=== PATIENT | male | born 1970 | race Caucasian/White ===

== ENCOUNTER 2024-02-01 20:13 | Emergency (ER) | payer OTHER, SELFPAY ==
[2024-02-01 20:15] VITALS: BP 185/121
--- NOTE | 2024-02-01 21:30 | ED.GENMED ---
History of Present Illness
General
Chief Complaint: Flank Pain
Time Seen by Provider: 02/01/24 21:00
Travel History
Have you had any contact with someone who has COVID-19?: No
Do you have any symptoms of coronavirus? Fever > 100 degrees, chills, cough, shortness of breath, sore throat, loss of taste or smell, muscle aches, or headache?: No
History of Present Illness
History of Present Illness:
53-year-old male with history of hypertension and hyperlipidemia presents to the emergency department for evaluation of left flank pain ongoing for the past week. Pain is colicky in nature, radiates from left flank to the groin. He did have an
outpatient x-ray obtained 2 days ago that was suspicious for distal ureteral calculus but not confirmatory. Does have a history of kidney stones that he is typically passed without difficulty. Denies any fevers or chills. No nausea or vomiting.
Took ibuprofen without relief
Past History
Past History
ED Past Medical History: HTN, Hypercholesterolemia and Other (sleep apnea , kidney stones)
ED Past Surgical History: None
Social History
Tobacco: Former smoker
Alcohol: Occasional
Drug: None
Personal:
Living: with family
Employment: Employed
Family History
Family History: Other (Noncontributory)
Review of Systems
Review of Systems
Allergies reviewed?: Yes
All Other Systems: ROS reviewed and negative except as documented in HPI and ROS
Phy Exam
Physical Exam
Physical Exam:
GEN: Well appearing, NAD, WDWN
HEENT: Oral mucosa moist, no scleral icterus
Cardiac: Regular rate
Lung: No respiratory distress, no tachypnea
MSK: No gross deformity or injuries
Skin: Good color, no pallor or jaundice, no rashes
Neuro: AO x3, moves all extremities freely
Psych: Calm, cooperative
Course
Orders/Labs/Results
Orders:
Orders
02/01/24 21:31
CT Abd/pel Without Iv Or Oral Urgent
Comment:
Reason For Exam: L flank pain
0.9% Sodium Chloride 1000 ml [Nss] 1,000 ml IV BOLUS
Ketorolac [Toradol] 15 mg IV NOW STA
02/01/24 21:37
Urinalysis Reflex To Culture Urgent
Date Specimen was Collected: 02/01/24
Time Specimen was Collected: 21:36
Urine Microscopic Reflex Cult Urgent
02/01/24 21:42
Basic Metabolic Panel Urgent
Complete Blood Count/With Diff Urgent
02/01/24 23:25
Ketorolac [Toradol] 15 mg IV NOW STA
Oxycodone/Acetaminophen [Percocet 5/325] 1 tablet PO NOW STA
Abnormal Lab Results
02/01/24 02/01/24
21:37 21:42
MCV 79.5 L fL
(80.0-94.0)
MPV 10.9 H fL
(7.4-10.4)
Absolute Monos (auto) 0.9 H 10^3/uL
(0.1-0.6)
Monocytes % 9.9 H %
(1.7-9.3)
BUN 23 H mg/dl
(9-20)
Glucose 183 H mg/dl
(70-99)
Urine Ketones Trace A
(Negative)
Urine Bacteria (Reflex) Few A
(Negative)
Urine Glucose 1+ A
(Negative)
Urine Albumin (Reflex) 3+ A
(Neg - Trace)
02/01/24 21:42
02/01/24 21:42
Vital Signs
Initial and Last Documented VS:
Initial Vital Signs
Temp Pulse BP Pulse Ox
97.3 F 98 185/121 97
02/01/24 20:15 02/01/24 20:15 02/01/24 20:15 02/01/24 20:15
Last Documented Vital Signs
Temp Pulse Resp BP Pulse Ox
97.3 F 79 14 168/74 99
02/01/24 20:15 02/01/24 23:43 02/01/24 23:43 02/01/24 23:43 02/01/24 22:14
MDM/Problems Addressed
MDM/Problems Addressed:
52-year-old male presents with left flank pain. He was found to have a kidney stone as an outpatient. He has no urinary tract voiding symptoms or fevers at this time. Outpatient medications have not improved symptoms. CT shows an 8 mm left
distal ureteral stone with mild hydronephrosis. Patient's urinalysis is bland, he has no fever or leukocytosis. CT report is suspicious for mural thickening of the bladder however the urinalysis is not consistent with UTI. Patient's pain improved
dramatically with treatment in the emergency department thus he is suitable for discharge home. I did discuss the findings and the clinical course with urology on-call to help facilitate close outpatient follow-up. ED return parameters discussed
with the patient
*Critical Care Note
Total Time (30-74mins, 75-104mins- exclusive of procedures): Not Applicable
ED Attending Note
-
Portions of this chart may have been created with voice recognition software.� Occasional wrong word or��sound alike� substitutions may have occurred due to the inherent limitations of voice recognition software.
Discharge Plan
Departure
Patient Disposition: Home (Routine Discharge)
Date of Disposition: 02/01/24
Time of Disposition: 23:25
Patient with high blood pressure during this ER visit?: No
Discharge Problem:
Ureterolithiasis
Instructions: Kidney Stones (DC)
Prescriptions:
New
oxycodone-acetaminophen [Percocet] 5-325 mg tablet
1 tab PO Q6HPRN PRN (Reason: pain) Qty: 8 0RF
ketorolac 10 mg tablet
10 mg PO Q8H Qty: 10 0RF
Rx Instructions:
maximum total duration of 5 days from all oral, intranasal, or parenteral formulations
No Action
atorvastatin 20 MG tablet
20 mg PO DAILY
diltiazem HCl 180 MG capsule,extended release 24hr
180 mg PO DAILY
tamsulosin [Flomax] 0.4 MG capsule
0.4 mg PO DAILY Qty: 7 1RF
valsartan 320 mg Tablet
320 mg PO DAILY
fenofibrate
145 mg PO DAILY
Fish Oil
1 cap PO Q48H
Referrals:
Deondre Sampson MD [Active] - Call in 1-3 days for appt
Demarcus Hodges MD [Family Provider] -
Activity Restrictions/Additional Instructions:
Continue to take tamsulosin prescribed by your urologist
If you develop a fever or uncontrolled pain despite these medications return the emergency department immediately
Do not take ibuprofen, aspirin, or naproxen while taking the ketorolac
Interventions
Interventions:
*Risk Screen - Suicide Last Done: 02/01/24 21:53
*General Assessment Last Done: 02/01/24 20:18
*Neglect/Abuse Screening Last Done: 02/01/24 20:18
ED- Fall Risk Assessment Last Done: 02/01/24 21:53
*ED COVID-19 Vaccine History Last Done: 02/01/24 20:18
*Nursing Disposition Last Done: 02/01/24 23:54
PQ-Byqozz-Rwbcwiztet Assessment Last Done: 02/01/24 21:53
ED-Male Genitourinary Assessment Last Done: 02/01/24 21:53
Discharge Date and Time
Discharge Date/Time: 02/01/24 23:54
[2024-02-01] MEDS: NSS 1000 IV (21:43)
[2024-02-01] MEDS: TORADOL 15 MG IV ×2 (21:43→23:45)
[2024-02-01 21:53] LABS: Urine Albumin 3+ (Neg - Trace); Urine Bilirubin Negative (Negative); Urine Character Clear (Clear); Urine Color Yellow; Urine Glucose 1+ (Negative); Urine Ketone Trace (Negative); Urine Leukocyte Negative (Negative); Urine Nitrite Negative (Negative); Urine Occult Blood Negative (Negative); Urine Specific Gravity 1.025 (<1.030); Urine Urobilinogen Negative (Neg - 1+)
[2024-02-01 21:53] LABS: % Basophils 1.1 % (0-2); % Immature Granulocytes 0.3 % (0-0.5); % Lymphocytes 23.5 % (20.5-51.1); % Monocytes 9.9 % (1.7-9.3); % Neutrophils 60.2 % (42.2-75.2); Absolute Basophils 0.1 10^3/uL (0-0.2); Absolute Eosinophils 0.5 10^3/uL (0-0.7); Absolute Lymphocytes 2.1 10^3/uL (1.2-3.4); Absolute Monocytes 0.9 10^3/uL (0.1-0.6); Absolute Neutrophils 5.4 10^3/uL (1.4-6.5); Hematocrit 43.7 % (39.0-52.0); Hemoglobin 15.3 g/dL (13.0-18.0); Mean Corpuscular Hgb 27.8 pg (27.0-31.0); Mean Corpuscular Volume 79.5 fL (80.0-94.0); Mean Platelet Volume 10.9 fL (7.4-10.4); Nucleated Red Blood Cells % 0 % (-); Platelet Count 260 10^3/uL (130-400); Red Cell Dist. Width 13.5 % (11.5-14.5)
--- NOTE | 2024-02-01 22:00 | EDRN ---
Pt developed dull pain in L flank 1 week ago. Pt has hx kidney stones and usually passes them on his own. Pt says pain has gotten worse and radiates into his groin. Pt took 800mg motrin which did not help his pain. Pt denies cp, sob, abd pain,
n/v/d/constipation, urinary symptoms, fever/cough/chills.
[2024-02-01 22:06] LABS: Blood Urea Nitrogen 23 mg/dl (9-20); Calcium 9.8 mg/dl (8.4-10.2); Carbon Dioxide 23 mmol/L (22-30); Chloride 104 mmol/L (98-107); Glucose 183 mg/dl (70-99); Potassium 3.6 mmol/L (3.5-5.1); Sodium 137 mmol/L (135-145); eGFR > 60.00
[2024-02-01 22:11] LABS: Urine Bacteria Few (Negative); Urine Red Blood Cell None Seen /HPF (0-2)
[2024-02-01 22:14] VITALS: BP 155/99
[2024-02-01 23:43] VITALS: BP 168/74
[2024-02-01] MEDS: PERCOCET 5/325 1 TABLET PO (23:46)
== END 2024-02-01 23:54 | disposition home or self-care (01) ==
LOC: EMR 20:13
PROVIDERS: Physician Assistant; EMERGENCY PHYSICIAN Emergency Medicine; FAMILY PHYSICIAN Family Medicine
DX: N13.2 Hydronephrosis with renal and ureteral calculous obstruction (principal); I10 Essential (primary) hypertension; E78.00 Pure hypercholesterolemia, unspecified; G47.30 Sleep apnea, unspecified; Z87.442 Personal history of urinary calculi; Z87.891 Personal history of nicotine dependence; Z91.048 Other nonmedicinal substance allergy status
CPT/HCPCS: 99284; 96374; 96375; 96361; 74176; 80048; 81003; 81015; 85025

== ENCOUNTER 2024-02-06 06:39 | Day surgery (SDC) | payer OTHER, SELFPAY ==
[2024-02-06] VITALS (9 sets, daily range): BP systolic 127–167; BP diastolic 75–94; BMI 33.1
[2024-02-06] MEDS: Pyridium 200 MG PO (10:35)
[2024-02-06] MEDS: NORMOSOL-R 1000 IV (10:35)
[2024-02-12 15:30] LABS: Stone Analysis Mass 23 mg
== END 2024-02-06 15:10 | disposition home or self-care (01) ==
LOC: SDS 06:39
PROVIDERS: ATTENDING PHYSICIAN Specialist
DX: N13.2 Hydronephrosis with renal and ureteral calculous obstruction (principal)
CPT/HCPCS: 52356; 74018; 76000; 82365; 93005; C1894; C2617

== ENCOUNTER → 2024-08-15 08:31 | Outpatient (REF) | payer OTHER, SELFPAY | LOC: MRI 3T 08:31 | PROVIDERS: ATTENDING PHYSICIAN Chiropractor; FAMILY PHYSICIAN Family Medicine | DX: M51.16 Intervertebral disc disorders with radiculopathy, lumbar region (principal) | CPT/HCPCS: 72148 ==